=== PATIENT | male | born 1965 | race Caucasian/White ===

== ENCOUNTER 2019-01-22 14:44 | Emergency (ER) | payer SELFPAY ==
--- NOTE | 2019-01-22 14:57 | EDM.PDOC ---
ED HPI GENERAL MEDICAL PROBLEM - General Chief Complaint: Chest Pain Stated Complaint: [facility] Time Seen by Provider: 01/22/19 14:45 Source of Information: Reports: Patient, EMS History Limitations: Reports: Other (no old records, only fair historian) - History of Present Illness INITIAL COMMENTS - FREE TEXT/NARRATIVE: 53 yo male from the [facility] with a known hx of CAD presents from the [facility] via EMS for chest pain. States pain began mildly this morning, then got more intense around 1 pm so he went to the clinic in [place]. There he was given ASA 324 mg po and NTG SL with a reduction in his pain. EMS gave additional NTG SL that further reduced, but did not eliminate his pain. He has experienced some nausea, diaphoresis, and SOB with radiation down the L arm. He has received most of his cardiac care at [facility] in the [facility]. He is doing construction work in the area. He has NTG to use for CP, but [facility]. He has several stents. He is not sure of all of his meds. Feels just like his prior cardiac ischemia. Onset: Today Onset Date: 01/22/19 Onset Time: 09:00 Duration: Hour(s):, Getting Worse Location: Reports: Chest, Upper Extremity, Left Quality: Reports: Ache, Pressure Severity: Moderate Improves with: Reports: Medication (NTG) Worsens with: Reports: Other (not sure today. ) Context: Reports: Other (See HPI) Associated Symptoms: Reports: Chest Pain, Diaphoresis, Nausea/Vomiting (no vomiting), Shortness of Breath. Denies: Fever/Chills, Syncope Treatments REPORTING LEAD: Reports: Aspirin, EKG, Nitroglycerin Chest Pain Score (Numeric/FACES): 6 - Related Data Allergies Allergy/AdvReac Type Severity Reaction Status Date / Time fentanyl Allergy Cannot Verified 01/22/19 14:57 Remember gabapentin Allergy Confusion Verified 01/22/19 14:57 Home Meds: Home Meds . [Unable to Verify Home Med List] 01/22/19 [History] ED ROS GENERAL - Review of Systems Review Of Systems: See Below Constitutional: Reports: No Symptoms HEENT: Reports: No Symptoms Respiratory: Reports: Shortness of Breath. Denies: Wheezing, Pleuritic Chest Pain, Cough, Sputum, Hemoptysis Cardiovascular: Reports: Chest Pain Endocrine: Reports: No Symptoms GI/Abdominal: Reports: Nausea. Denies: Abdominal Pain, Black Stool, Bloody Stool, Constipation, Diarrhea, Decreased Appetite, Distension, Flatus, Hematemesis, Hematochezia, Vomiting : Reports: No Symptoms Musculoskeletal: Reports: No Symptoms Skin: Reports: No Symptoms Neurological: Reports: No Symptoms Psychiatric: Reports: No Symptoms Hematologic/Lymphatic: Reports: No Symptoms ED EXAM, GENERAL - Physical Exam Exam: See Below Exam Limited By: No Limitations General Appearance: Alert, WD/WN, No Apparent Distress Eye Exam: Bilateral Eye: Normal Inspection Ears: Normal External Exam, Normal Canal, Hearing Grossly Normal, Normal TMs Ear Exam: Bilateral Ear: Auricle Normal, Canal Normal Nose: Normal Inspection, No Blood Throat/Mouth: Normal Inspection, Normal Lips, Normal Oropharynx, Normal Voice, No Airway Compromise Head: Atraumatic, Normocephalic Neck: Normal Inspection Respiratory/Chest: No Respiratory Distress, Lungs Clear, Normal Breath Sounds, No Accessory Muscle Use, Chest Non-Tender Cardiovascular: Regular Rate, Rhythm, No Edema GI/Abdominal: Normal Bowel Sounds, Soft, Non-Tender, No Distention Back Exam: Normal Inspection. No: CVA Tenderness (R), CVA Tenderness (L) Extremities: Normal Inspection, Normal Range of Motion, Non-Tender, No Pedal Edema Neurological: Alert, Oriented, CN II-XII Intact, Normal Cognition, No Motor/ Sensory Deficits Psychiatric: Normal Affect, Normal Mood Skin Exam: Warm, Dry, Intact, Normal Color, No Rash Lymphatic: No Adenopathy EKG INTERPRETATION EKG Date: 01/22/19 Time: 14:00 Rhythm: NSR Rate (Beats/Min): 77 [employer]: LAD-Left [employer] Deviation P-Wave: Present QRS: Normal ST-T: Normal QT: Normal Comparison: NA - No Prior EKG EKG Interpretation Comments: Q waves in inferior leads. No old EKG here. Will try to obtain from [facility]. Course - Vital Signs Text/Narrative:: Pain free after initiation of the NTG drip. coming soon, wants to discuss transfer with her. Accepted by cardiology in [place] @ 1836h, ALS to transfer. Last Recorded V/S: Last Vital Signs Temp 36.6 C 01/22/19 14:49 Pulse 66 01/22/19 17:50 Resp 17 04/26/19 17:50 BP 123/71 01/22/19 17:50 Pulse Ox 95 01/22/19 17:50 - Orders/Labs/Meds Orders: Active Orders 24 hr Category Date Time Status Cardiac Monitoring [RC] .As Directed Care 01/22/19 14:45 Active Heparin Sodium/D5W [Heparin 25,000 Units in D5W 500 ML] Med 01/22/19 18:30 Ordered 25,000 units in 500 ml IV TITRATE Nitroglycerin/D5W [Nitroglycerin 25 MG/D5W 250 ML] Med 01/22/19 16:30 Active 25 mg in 250 ml IV TITRATE Medication Orders Nitroglycerin/Dextrose (Nitroglycerin 25 Mg/D5w 250 Ml) 25 mg in 250 mls @ 6 mls/hr IV TITRATE SAJAN; Protocol Last Admin: 01/22/19 16:53 Dose: 10 mcg/min, 6 mls/hr Heparin Sodium/Dextrose (Heparin 25,000 Units In D5w 500 Ml) 25,000 units in 500 mls @ 18 mls/hr IV TITRATE SAJAN Labs: Laboratory Tests 01/22/19 01/22/19 01/22/19 Range/Units 14:51 14:51 17:10 WBC 8.6 (4.5-11.0) K/uL RBC 5.31 (4.30-5.90) M/uL Hgb 15.3 H (12.0-15.0) g/dL Hct 46.8 (40.0-54.0) % MCV 88 (80-98) fL MCH 29 (27-31) pg MCHC 33 (32-36) % Plt Count 325 (150-400) K/uL Sodium 141 (140-148) mmol/L Potassium 4.1 (3.6-5.2) mmol/L Chloride 106 (100-108) mmol/L Carbon Dioxide 24 (21-32) mmol/L Anion Gap 10.7 (5.0-14.0) mmol/L BUN 13 (7-18) mg/dL Creatinine 0.8 (0.8-1.3) mg/dL Est Cr Clr Drug Dosing 100.99 mL/min Estimated GFR (MDRD) > 60 (>60) Glucose 67 L (74-106) mg/dL Calcium 9.2 (8.5-10.1) mg/dL Troponin I 0.037 0.086 H* (0.000-0.056) ng/mL Meds: Medications Generic Name Dose Route Start Last Admin Trade Name Freq PRN Reason Stop Dose Admin Nitroglycerin/Dextrose 25 mg in 250 mls @ 6 mls/hr 01/22/19 16:30 01/22/19 16 :53 Nitroglycerin 25 Mg/D5w 250 Ml IV 10 mcg/min TITRATE SAJAN 6 mls/hr Administration Protocol 10 MCG/MIN Heparin Sodium/Dextrose 25,000 units in 500 mls @ 18 mls/hr 01/22/19 18:30 Heparin 25,000 Units In D5w 500 Ml IV TITRATE SAJAN 900 UNITS/HR Discontinued Medications Generic Name Dose Route Start Last Admin Trade Name Freq PRN Reason Stop Dose Admin Clopidogrel Bisulfate 600 mg 01/22/19 18:27 Plavix PO 01/22/19 18:28 ONETIME ONE Heparin Sodium (Porcine) 4,000 units 01/22/19 18:26 Heparin Sodium IVPUSH 01/22/19 18:27 ONETIME ONE Ondansetron HCl 4 mg 01/22/19 16:59 01/22/19 17:03 Zofran IVPUSH 01/22/19 17:00 4 mg ONETIME ONE Administration Departure - Departure Time of Disposition: 18:45 Disposition: DC/Tfer to Acute Hospital 02 Reason for Transfer *Q: Other Condition: Serious Clinical Impression: Unstable angina, Acute coronary insufficiency Referrals: PCP,None [Primary Care Provider] - Forms: ED Department Discharge - My Orders Last 24 Hours: My Active Orders 01/22/19 14:45 Cardiac Monitoring [RC] .As Directed 01/22/19 16:30 Nitroglycerin/D5W [Nitroglycerin 25 MG/D5W 250 ML] 25 mg in 250 ml IV TITRATE 01/22/19 18:30 Heparin Sodium/D5W [Heparin 25,000 Units in D5W 500 ML] 25,000 units in 500 ml IV TITRATE - Assessment/Plan Last 24 Hours: My Active Orders 01/22/19 14:45 Cardiac Monitoring [RC] .As Directed 01/22/19 16:30 Nitroglycerin/D5W [Nitroglycerin 25 MG/D5W 250 ML] 25 mg in 250 ml IV TITRATE 01/22/19 18:30 Heparin Sodium/D5W [Heparin 25,000 Units in D5W 500 ML] 25,000 units in 500 ml IV TITRATE
[2019-01-22] MEDS ORDERED: Nitroglycerin/D5W 25 MG/250 ML BOTTLE IV SCH (16:30)
[2019-01-22] MEDS ORDERED: Ondansetron 4 MG/2 ML SDV IVPUSH ONE (16:59)
[2019-01-22] MEDS ORDERED: Heparin Sodium 5,000 Units/ML Vial IVPUSH ONE (18:26)
[2019-01-22] MEDS ORDERED: Clopidogrel 75 MG Tab PO ONE (18:27)
[2019-01-22] MEDS ORDERED: Heparin Sodium/D5W 25,000 UNITS/500 ML BAG IV SCH (18:30)
[2019-01-22] MEDS ORDERED: Morphine 2 MG/ML Syringe IVPUSH ONE (18:58)
[2019-01-22] MEDS ORDERED: LORazepam 2 MG/ML SDV IVPUSH ONE (19:44)
== END 2019-01-22 20:10 ==
LOC: JP.ED 14:44
DX: I24.8 Other forms of acute ischemic heart disease (principal); Z88.8 Allergy status to other drugs, medicaments and biological substances
CPT/HCPCS: 36415; 80048; 84484; 85027; 93005; 96365; 96366; 96368; 96375; 96376; 99285; A9270; J1644; J2060; J2270; J2405; J3490; 93010